=== PATIENT | male | born 1945 | race Caucasian/White ===

== ENCOUNTER → 2016-04-01 | Outpatient (REF) | payer MEDICARE ==
[~2016-04-01] MED LIST: CEFT500T3 PO; MIRT30TA3 PO; MUCI600T34 PO; TYLE325T5 PO; ZITH500T PO; ZOCO20TA PO
[2016-04-01 18:19] LABS: ALBUMIN 4.2 GM/DL (3.2-5.2); ALKALINE PHOSPHATASE 132 U/L (45-117); ALT/SGPT 31 U/L (12-78); ANION GAP 9 MEQ/L (8-16); AST/SGOT 26 U/L (15-37); BLOOD UREA NITROGEN 28 MG/DL (7-18); CALCIUM LEVEL 9.3 MG/DL (8.8-10.2); CARBON DIOXIDE LEVEL 28 MEQ/L (21-32); CHLORIDE LEVEL 108 MEQ/L (98-107); CREATININE FOR GFR 1.13 MG/DL (0.70-1.30); GLOMERULAR FILTRATION RATE > 60.0 (>42); GLUCOSE, FASTING 102 MG/DL (83-110); POTASSIUM SERUM 4.1 MEQ/L (3.5-5.1); SODIUM LEVEL 145 MEQ/L (136-145); TOTAL PROTEIN 7.7 GM/DL (6.4-8.2)
== END ==
LOC: M SFHCCAPE 07:21
PROVIDERS: ATTEND Internal Medicine
DX: Z51.81 Encounter for therapeutic drug level monitoring (principal); Z79.899 Other long term (current) drug therapy

== ENCOUNTER → 2016-10-09 | Outpatient (REF) | payer MEDICARE ==
[~2016-10-09] MED LIST changes: -MUCI600T34 PO; +MUCI600T37 PO
[2016-10-09 16:59] LABS: ALKALINE PHOSPHATASE 123 U/L (45-117); ALT/SGPT 36 U/L (12-78); ANION GAP 11 MEQ/L (8-16); AST/SGOT 26 U/L (15-37); BILIRUBIN,TOTAL 0.9 MG/DL (0.2-1.0); BLOOD UREA NITROGEN 23 MG/DL (7-18); CALCIUM LEVEL 8.7 MG/DL (8.8-10.2); CARBON DIOXIDE LEVEL 26 MEQ/L (21-32); CHLORIDE LEVEL 109 MEQ/L (98-107); CHOLESTEROL LEVEL 147 MG/DL (<200); CREATININE FOR GFR 1.06 MG/DL (0.70-1.30); GLOMERULAR FILTRATION RATE > 60.0 (>42); GLUCOSE, FASTING 87 MG/DL (83-110); POTASSIUM SERUM 4.6 MEQ/L (3.5-5.1); SODIUM LEVEL 146 MEQ/L (136-145); TRIGLYCERIDES LEVEL 102 MG/DL (<150)
[2016-10-09 17:01] LABS: FOLATE 15.4 NG/ML; VITAMIN B12 LEVEL > 2000 PG/ML
[2016-10-09 17:03] LABS: MEAN CORPUSCULAR HEMOGLOBIN 29.2 pg (27.0-33.0); MEAN CORPUSCULAR HGB CONC 33.7 g/dl (32.0-36.5); MEAN CORPUSCULAR VOLUME 86.8 fl (80.0-96.0); RED CELL DISTRIBUTION WIDTH 13.1 % (11.5-14.5); WHITE BLOOD COUNT 7.5 K/mm3 (4.0-10.0)
== END ==
LOC: M SFHCCAPE 07:08
PROVIDERS: ATTEND Internal Medicine
DX: Z51.81 Encounter for therapeutic drug level monitoring (principal); Z79.899 Other long term (current) drug therapy; E78.00 Pure hypercholesterolemia, unspecified; R41.3 Other amnesia; R97.20 Elevated prostate specific antigen [PSA]

== ENCOUNTER → 2017-01-22 | Outpatient (REF) | payer OTHER | LOC: M LABDRAW1 10:44 | PROVIDERS: ATTEND Physical Medicine & Rehabilitation | DX: M51.37 Other intervertebral disc degeneration, lumbosacral region (principal) ==

== ENCOUNTER → 2017-04-29 | Outpatient (REF) | payer MEDICARE ==
[2017-04-29 16:42] LABS: ALBUMIN 4.3 GM/DL (3.2-5.2); ALBUMIN/GLOBULIN RATIO 1.16 (1.00-1.93); ALKALINE PHOSPHATASE 137 U/L (45-117); ALT/SGPT 29 U/L (12-78); ANION GAP 8 MEQ/L (8-16); AST/SGOT 24 U/L (7-37); BLOOD UREA NITROGEN 31 MG/DL (7-18); CALCIUM LEVEL 9.2 MG/DL (8.8-10.2); CARBON DIOXIDE LEVEL 27 MEQ/L (21-32); CHLORIDE LEVEL 108 MEQ/L (98-107); CREATININE FOR GFR 1.11 MG/DL (0.70-1.30); GLOMERULAR FILTRATION RATE > 60.0 (>42); GLUCOSE, FASTING 80 MG/DL (70-100); SODIUM LEVEL 143 MEQ/L (136-145)
== END ==
LOC: M SFHCCAPE 07:28
DX: E78.00 Pure hypercholesterolemia, unspecified (principal)
CPT/HCPCS: 80053

== ENCOUNTER 2017-07-30 09:09 | Emergency (ER) | payer MEDICARE ==
[2017-07-30] MEDS: ACETAMINOPHEN TAB 650MG DOSE (2X325MG) PO (09:49)
[2017-07-30 10:11] LABS: BASO # 0.1 10^3/uL (0.0-0.2); BASO % 0.5 % (0.0-1.0); EOS # 0.1 10^3/uL (0.0-0.50); EOS % 0.5 % (0.0-3.0); HEMOGLOBIN 14.4 g/dl (13.5-17.5); IMMATURE GRANULOCYTE % 0.5 % (0-3.0); LYMPH % 6.6 % (24.0-44.0); MEAN CORPUSCULAR HEMOGLOBIN 28.8 pg (27.0-33.0); MEAN CORPUSCULAR HGB CONC 34.3 g/dl (32.0-36.5); MONO # 1.4 10^3/uL (0.0-0.8); MONO % 8.8 % (0.0-5.0); NEUTROPHILS # 12.8 10^3/uL (1.8-7.7); NEUTROPHILS % 83.1 % (36.0-66.0); PLATELET COUNT, AUTOMATED 252 10^3/uL (150-450); RED CELL DISTRIBUTION WIDTH 12.9 % (11.5-14.5); WHITE BLOOD COUNT 15.4 10^3/uL (4.0-10.0)
[2017-07-30 10:32] LABS: INFLUENZA A AMPLIFICATION NEGATIVE (NEGATIVE); INFLUENZA B AMPLIFICATION NEGATIVE (NEGATIVE)
[2017-07-30 10:33] LABS: ANION GAP 9 MEQ/L (8-16); BLOOD UREA NITROGEN 27 MG/DL (7-18); CALCIUM LEVEL 9.1 MG/DL (8.8-10.2); CARBON DIOXIDE LEVEL 28 MEQ/L (21-32); CHLORIDE LEVEL 107 MEQ/L (98-107); CREATININE FOR GFR 1.16 MG/DL (0.70-1.30); GLOMERULAR FILTRATION RATE > 60.0 (>42); GLUCOSE, FASTING 125 MG/DL (70-100); SODIUM LEVEL 144 MEQ/L (136-145)
[2017-07-30] MEDS: cefTRIAXone SOD 1 GM in D5W MINI-BAG PLUS 50 ML IV (10:40)
[2017-07-30] MEDS: AZITHROMYCIN 250 MG TAB PO (10:40)
== END 2017-07-30 11:27 | disposition home or self-care (01) ==
LOC: M ED 09:09
DX: J18.1 Lobar pneumonia, unspecified organism (principal); R13.14 Dysphagia, pharyngoesophageal phase; K21.9 Gastro-esophageal reflux disease without esophagitis; K44.9 Diaphragmatic hernia without obstruction or gangrene; Z87.891 Personal history of nicotine dependence; Z79.899 Other long term (current) drug therapy
CPT/HCPCS: J0696

== ENCOUNTER → 2017-07-30 | Outpatient (CLI) | payer MEDICARE ==
[~2017-07-30] MED LIST changes: -CEFT500T3 PO; +E-Z-GAS II EFFERVESCENT PACKET (SODIUM BICARB./CITRIC ACID/SIMETHICONE) As Ordered; +E-Z-HD 98% w/w 340GM SUSP BTL As Ordered; +E-Z-PAQUE 96% w/w SUSP 176GM BTL As Ordered; -MIRT30TA3 PO; -MUCI600T37 PO; -TYLE325T5 PO; -ZITH500T PO; -ZOCO20TA PO
== END ==
LOC: M RAD 08:25
DX: R13.14 Dysphagia, pharyngoesophageal phase (principal); R91.8 Other nonspecific abnormal finding of lung field; K44.9 Diaphragmatic hernia without obstruction or gangrene; K21.9 Gastro-esophageal reflux disease without esophagitis
CPT/HCPCS: 74220

== ENCOUNTER → 2017-08-25 | Outpatient (CLI) | payer MEDICARE | LOC: M LAB 08:13 | DX: R91.8 Other nonspecific abnormal finding of lung field (principal) | CPT/HCPCS: 71046 ==

== ENCOUNTER 2017-11-21 10:11 | Emergency (ER) | payer MEDICARE | END 2017-11-21 11:16 | disposition home or self-care (01) | LOC: M ED 10:11 | DX: R05 Cough (principal); R09.82 Postnasal drip; E78.5 Hyperlipidemia, unspecified; Z87.891 Personal history of nicotine dependence; Z79.899 Other long term (current) drug therapy | CPT/HCPCS: 71046 ==

== ENCOUNTER → 2018-02-08 | Outpatient (CLI) | payer MEDICARE ==
[~2018-02-08] MED LIST changes: +ALLE60TA69 PO; +B121000T PO; +CEFT500T3 PO; +CEFU50TA PO; -E-Z-GAS II EFFERVESCENT PACKET (SODIUM BICARB./CITRIC ACID/SIMETHICONE) As Ordered; -E-Z-HD 98% w/w 340GM SUSP BTL As Ordered; -E-Z-PAQUE 96% w/w SUSP 176GM BTL As Ordered; +FLON1SPR NARES; +MIRT30TA3 PO; +MUCI600T37 PO; +OMEP20CA3 PO; +RANI300T PO; +TYLE325T5 PO; +ZITH500T PO; +ZITHTAB PO; +ZOCO20TA PO
[2018-02-08 10:29] LABS: HEMATOCRIT 41.7 % (42.0-52.0); HEMOGLOBIN 14.1 g/dl (13.5-17.5); MEAN CORPUSCULAR HEMOGLOBIN 29.1 pg (27.0-33.0); MEAN CORPUSCULAR HGB CONC 33.8 g/dl (32.0-36.5); PLATELET COUNT, AUTOMATED 277 10^3/uL (150-450); RED BLOOD COUNT 4.85 10^6/uL (4.30-6.10); WHITE BLOOD COUNT 8.3 10^3/uL (4.0-10.0)
[2018-02-08 11:04] LABS: ALBUMIN 3.8 GM/DL (3.2-5.2); ALT/SGPT 28 U/L (12-78); BILIRUBIN,TOTAL 0.6 MG/DL (0.2-1.0); BLOOD UREA NITROGEN 28 MG/DL (7-18); CALCIUM LEVEL 8.8 MG/DL (8.8-10.2); CARBON DIOXIDE LEVEL 26 MEQ/L (21-32); CHLORIDE LEVEL 109 MEQ/L (98-107); CHOLESTEROL LEVEL 137 MG/DL (<200); CREATININE FOR GFR 1.11 MG/DL (0.70-1.30); GLOMERULAR FILTRATION RATE > 60.0 (>42); GLUCOSE, FASTING 90 MG/DL (70-100); HDL CHOLESTEROL 50 MG/DL (>40); LDL CHOLESTEROL 75 MG/DL (<100); MAGNESIUM LEVEL 2.4 MG/DL (1.8-2.4); NON-HDL-C 87 MG/DL; POTASSIUM SERUM 4.1 MEQ/L (3.5-5.1); PROSTATIC SPECIFIC AG MONITOR 6.13 NG/ML (< 4.00); SODIUM LEVEL 142 MEQ/L (136-145); TOTAL PROTEIN 7.5 GM/DL (6.4-8.2); TRIGLYCERIDES LEVEL 61 MG/DL (<150)
== END ==
LOC: M LAB 10:01
PROVIDERS: ATTEND Internal Medicine
DX: E78.00 Pure hypercholesterolemia, unspecified (principal); R97.20 Elevated prostate specific antigen [PSA]; Z79.899 Other long term (current) drug therapy

== ENCOUNTER → 2018-04-09 | Outpatient (REF) | payer MEDICARE | LOC: M SFHCCAPE 08:39 | PROVIDERS: ATTEND Internal Medicine | DX: R97.20 Elevated prostate specific antigen [PSA] (principal) ==

== ENCOUNTER → 2018-08-17 | Outpatient (CLI) | payer MEDICARE ==
[~2018-08-17] MED LIST changes: -OMEP20CA3 PO; +OMEP20CA4 PO
[2018-08-17 09:02] LABS: ALBUMIN 3.9 GM/DL (3.2-5.2); ALT/SGPT 26 U/L (12-78); BILIRUBIN,TOTAL 1.1 MG/DL (0.2-1.0); BLOOD UREA NITROGEN 31 MG/DL (7-18); CALCIUM LEVEL 9.1 MG/DL (8.8-10.2); CARBON DIOXIDE LEVEL 26 MEQ/L (21-32); CHLORIDE LEVEL 112 MEQ/L (98-107); CREATININE FOR GFR 1.08 MG/DL (0.70-1.30); GLOMERULAR FILTRATION RATE > 60.0 (>42); GLUCOSE, FASTING 87 MG/DL (70-100); POTASSIUM SERUM 3.9 MEQ/L (3.5-5.1); PROSTATIC SPECIFIC AG MONITOR 1.63 NG/ML (< 4.00); SODIUM LEVEL 143 MEQ/L (136-145); THYROID STIMULATING HORMONE 0.784 uIU/ML (0.358-3.740); TOTAL PROTEIN 7.4 GM/DL (6.4-8.2)
== END ==
LOC: M LAB 07:47
PROVIDERS: ATTEND Internal Medicine
DX: E78.00 Pure hypercholesterolemia, unspecified (principal); I48.0 Paroxysmal atrial fibrillation; G56.03 Carpal tunnel syndrome, bilateral upper limbs

== ENCOUNTER → 2018-11-04 | Outpatient (REF) | payer MEDICARE ==
[2018-11-04 18:29] LABS: BLOOD UREA NITROGEN 34 MG/DL (7-18); CREATININE FOR GFR 1.07 MG/DL (0.70-1.30); GLOMERULAR FILTRATION RATE > 60.0 (>42)
== END ==
LOC: M LABDRAW1 18:04
PROVIDERS: ATTEND Physician Assistant
DX: M48.07 Spinal stenosis, lumbosacral region (principal)

== ENCOUNTER → 2019-02-17 | Outpatient (CLI) | payer MEDICARE ==
[~2019-02-17] MED LIST changes: +ASPI81TA85 PO; +MELO15TA28 PO; +OMEP-172 PO; -OMEP20CA4 PO; +RA M10TA PO
[2019-02-17 14:01] LABS: HEMATOCRIT 43.6 % (42.0-52.0); MEAN CORPUSCULAR HEMOGLOBIN 28.2 pg (27.0-33.0); MEAN CORPUSCULAR HGB CONC 32.1 g/dl (32.0-36.5); MEAN CORPUSCULAR VOLUME 87.9 fl (80.0-96.0); PLATELET COUNT, AUTOMATED 251 10^3/uL (150-450); RED BLOOD COUNT 4.96 10^6/uL (4.30-6.10); WHITE BLOOD COUNT 8.8 10^3/uL (4.0-10.0)
[2019-02-17 14:05] LABS: ALBUMIN 4.1 GM/DL (3.2-5.2); ALT/SGPT 28 U/L (12-78); BILIRUBIN,TOTAL 1.2 MG/DL (0.2-1.0); BLOOD UREA NITROGEN 30 MG/DL (7-18); CALCIUM LEVEL 9.3 MG/DL (8.8-10.2); CARBON DIOXIDE LEVEL 26 MEQ/L (21-32); CHLORIDE LEVEL 108 MEQ/L (98-107); CHOLESTEROL LEVEL 142 MG/DL (<200); CHOLESTEROL RISK RATIO 3.021 (<5); CREATININE FOR GFR 1.07 MG/DL (0.70-1.30); GLOMERULAR FILTRATION RATE > 60.0 (>42); GLUCOSE, FASTING 94 MG/DL (70-100); HDL CHOLESTEROL 47 MG/DL (>40); LDL CHOLESTEROL 70 MG/DL (<100); NON-HDL-C 95 MG/DL; POTASSIUM SERUM 4.4 MEQ/L (3.5-5.1); SODIUM LEVEL 141 MEQ/L (136-145); TOTAL PROTEIN 7.7 GM/DL (6.4-8.2); TRIGLYCERIDES LEVEL 126 MG/DL (<150)
== END ==
LOC: M PLALAB 08:50
PROVIDERS: ATTEND Internal Medicine
DX: Z00.00 Encounter for general adult medical examination without abnormal findings (principal); E78.00 Pure hypercholesterolemia, unspecified

== ENCOUNTER 2019-02-22 12:03 | Day surgery (SDC) | payer MEDICARE ==
[~2019-02-22] VITALS: Ht 172.7 cm; Wt 63.0 kg
[~2019-02-22 12:03] MED LIST changes: +NS 1,000 ML IV SCH; -OMEP-172 PO; +OMEP1CAP73 PO
[2019-02-22] MEDS ORDERED: LIDOCAINE 2% INJ 100 MG/5 ML SDV (FOR ANES.) As Ordered ONE (12:05)
[2019-02-22] MEDS ORDERED: propofoL 200 MG/20 ML VIAL As Ordered ONE (12:05)
--- NOTE | 2019-02-22 13:36 | ROOR ---
Patient Name: Spencer Malin Procedure Date: 02/22/2019 1:15 PM Date of : 1945 Age: 74 Room: [facility] Gender: Male Note Status: Finalized Procedure: Colonoscopy Indications: Screening for colorectal malignant neoplasm Providers: Jeovany PAIGE MD Referring MD: Adolfo Silveira MD Requesting Provider: Medicines: Monitored Anesthesia Care Complications: No immediate complications. Procedure: Pre-Anesthesia Assessment: - The heart rate, respiratory rate, oxygen saturations, blood pressure, adequacy of pulmonary ventilation, and response to care were monitored throughout the procedure. The Colonoscope was introduced through the anus and advanced to the terminal ileum, with identification of the appendiceal orifice and IC valve. The colonoscopy was performed without difficulty. The patient tolerated the procedure well. The quality of the bowel preparation was good. Findings: The perianal and digital rectal examinations were normal. Retroflexion in the right colon was performed. Mild sigmoid diverticulosis and small internal hemorrhoids. The entire examined colon appeared normal on direct and retroflexion views. Impression: - Mild sigmoid diverticulosis and small internal hemorrhoids. - The entire examined colon is normal on direct and retroflexion views. - No specimens collected. Recommendation: - Repeat colonoscopy in 10 years for screening purposes. Jeovany Paige MD Jeovany PAIGE MD 02/22/2019 1:35:49 PM Electronically signed by Jeovany PAIGE MD Number of Addenda: 0 Note Initiated On: 02/22/2019 1:15 PM Estimated Blood Loss: Estimated blood loss: none.
[2019-02-22 14:00] VITALS: BP 117/75
== END 2019-02-22 14:05 | disposition home or self-care (01) ==
LOC: M OPP 12:03
PROVIDERS: ATTEND Internal Medicine Gastroenterology
DX: Z12.11 Encounter for screening for malignant neoplasm of colon (principal); K57.30 Diverticulosis of large intestine without perforation or abscess without bleeding; K64.8 Other hemorrhoids; E78.00 Pure hypercholesterolemia, unspecified; M19.90 Unspecified osteoarthritis, unspecified site; Z79.899 Other long term (current) drug therapy; Z87.891 Personal history of nicotine dependence; Z87.19 Personal history of other diseases of the digestive system

== ENCOUNTER → 2019-03-04 | Outpatient (REF) | payer MEDICARE ==
[~2019-03-04] MED LIST changes: -NS 1,000 ML IV SCH
[2019-03-04 18:05] LABS: BLOOD UREA NITROGEN 36 MG/DL (7-18); CREATININE FOR GFR 1.14 MG/DL (0.70-1.30); GLOMERULAR FILTRATION RATE > 60.0 (>42)
== END ==
LOC: M LABDRAW1 16:47
PROVIDERS: ATTEND Physician Assistant
DX: M48.07 Spinal stenosis, lumbosacral region (principal)

== ENCOUNTER → 2019-08-04 | Outpatient (CLI) | payer OTHER ==
[2019-08-04 11:57] LABS: PLATELET COUNT, AUTOMATED 244 10^3/uL (150-450)
[2019-08-04 12:10] LABS: INR 1.18; PROTHROMBIN TIME 14.7 SECONDS (11.8-14.0)
[2019-08-04 12:11] LABS: PARTIAL THROMBOPLASTIN TIME 35.8 SECONDS (25.0-38.4)
== END ==
LOC: M LAB 10:58
PROVIDERS: ATTEND Physician Assistant
DX: Z01.812 Encounter for preprocedural laboratory examination (principal); M47.817 Spondylosis without myelopathy or radiculopathy, lumbosacral region

== ENCOUNTER → 2019-08-06 | Outpatient (REF) | payer MEDICARE ==
[2019-08-06 12:11] LABS: ALBUMIN 3.9 GM/DL (3.2-5.2); ALT/SGPT 26 U/L (12-78); BLOOD UREA NITROGEN 20 MG/DL (7-18); CALCIUM LEVEL 9.2 MG/DL (8.8-10.2); CARBON DIOXIDE LEVEL 27 MEQ/L (21-32); CHLORIDE LEVEL 109 MEQ/L (98-107); CREATININE FOR GFR 0.96 MG/DL (0.70-1.30); GLOMERULAR FILTRATION RATE > 60.0 (>42); GLUCOSE, FASTING 105 MG/DL (70-100); POTASSIUM SERUM 4.4 MEQ/L (3.5-5.1); SODIUM LEVEL 141 MEQ/L (136-145); TOTAL PROTEIN 7.6 GM/DL (6.4-8.2)
== END ==
LOC: M PLALAB 08:44
PROVIDERS: ATTEND Internal Medicine
DX: E78.00 Pure hypercholesterolemia, unspecified (principal)

== ENCOUNTER → 2019-08-31 | Outpatient (CLI) | payer MEDICARE ==
[~2019-08-31] MED LIST changes: -ASPI81TA85 PO; +ASPI81TA86 PO; +AUGM500T34 PO; +QC A650T3 PO
== END ==
LOC: M EKG 07:48
PROVIDERS: ATTEND Internal Medicine Cardiovascular Disease
DX: I48.0 Paroxysmal atrial fibrillation (principal)

== ENCOUNTER 2019-09-06 13:20 | Emergency (ER) | payer MEDICARE ==
[~2019-09-06 13:20] MED LIST changes: -AUGM500T34 PO; +ISOVUE-370 76% 100ML VIAL ONE; -QC A650T3 PO
[2019-09-06] MEDS ORDERED: GI COCKTAIL 50ML BTL(HYOSCYAMINE/MAALOX/LIDOCAINE VISCOUS)(1:3:1) ONE (14:13)
[2019-09-06] MEDS ORDERED: MORPHINE 2 MG/ML 1ML VIAL (J2270) ONE (14:13)
[2019-09-06] MEDS ORDERED: ONDANSETRON 4MG/2ML VIAL ONE (14:13)
[2019-09-06] MEDS ORDERED: ASPIRIN 81 MG CHEW TABLET ONE (14:13)
[2019-10-10 10:07] LABS: BASO # 0.1 10^3/uL (0.0-0.2); BASO % 0.4 % (0.0-1.0); EOS % 0.3 % (0.0-3.0); HEMOGLOBIN 13.9 g/dl (13.5-17.5); LYMPH # 1.2 10^3/uL (1.5-5.0); LYMPH % 9.9 % (24.0-44.0); MEAN CORPUSCULAR HEMOGLOBIN 28.2 pg (27.0-33.0); MEAN CORPUSCULAR HGB CONC 33.1 g/dl (32.0-36.5); MEAN CORPUSCULAR VOLUME 85.2 fl (80.0-96.0); MONO # 1.2 10^3/uL (0.0-0.8); MONO % 9.9 % (0.0-5.0); NEUTROPHILS # 9.6 10^3/uL (1.5-8.5); PLATELET COUNT, AUTOMATED 255 10^3/uL (150-450); RED BLOOD COUNT 4.93 10^6/uL (4.30-6.10); WHITE BLOOD COUNT 12.1 10^3/uL (4.0-10.0)
--- NOTE | 2019-10-29 15:10 | ECGEPIP ---
SINUS RHYTHM EARLY REPOLARIZATION VS PERICARDITIS - CLINICAL CORRELATION BORDERLINE ECG CONCERN WITH DATE - PLEASE RECTIFY NO PRIOR DUE TO DOWNTIME MTDD
[2019-11-20 14:01] LABS: ALT/SGPT 28 U/L (12-78); BILIRUBIN,DIRECT 0.4 MG/DL (0.0-0.2); BILIRUBIN,TOTAL 1.6 MG/DL (0.2-1.0); BLOOD UREA NITROGEN 23 MG/DL (7-18); CALCIUM LEVEL 9.3 MG/DL (8.8-10.2); CARBON DIOXIDE LEVEL 25 MEQ/L (21-32); CHLORIDE LEVEL 105 MEQ/L (98-107); CK-MB VALUE MASS < 1.0 NG/ML (<3.6); CPK CREATINE PHOSPHOKINASE 105 U/L (39-308); CREATININE FOR GFR 1.13 MG/DL (0.70-1.30); FREE T4 1.31 NG/DL (0.76-1.46); GLOMERULAR FILTRATION RATE > 60.0 (>42); GLUCOSE, FASTING 99 MG/DL (70-100); MB/CK RELATIVE INDEX 0.95 (< OR =4); SODIUM LEVEL 141 MEQ/L (136-145); THYROID STIMULATING HORMONE 0.354 uIU/ML (0.358-3.740); TOTAL PROTEIN 7.9 GM/DL (6.4-8.2); TROPONIN I < 0.02 NG/ML (< 0.10)
== END 2019-09-06 19:35 | disposition home or self-care (01) ==
LOC: M ED 13:20
DX: R91.8 Other nonspecific abnormal finding of lung field (principal); R07.9 Chest pain, unspecified; R42 Dizziness and giddiness; Z87.891 Personal history of nicotine dependence; Z79.899 Other long term (current) drug therapy; Z79.84 Long term (current) use of oral hypoglycemic drugs
CPT/HCPCS: 71045; 71046; 71275; 80048; 80076; 82550; 82553; 84439; 84443; 84484; 85025; 87040; 93005; 96374; 96375; 99285; J2270; J2405; Q9967; U0002

== ENCOUNTER → 2019-09-13 | Outpatient (CLI) | payer MEDICARE ==
[~2019-09-13] MED LIST changes: +AUGM500T34 PO; -ISOVUE-370 76% 100ML VIAL ONE; +QC A650T3 PO
== END ==
LOC: M CARPUL 08:30
PROVIDERS: ATTEND Internal Medicine Cardiovascular Disease
DX: I48.0 Paroxysmal atrial fibrillation (principal)

== ENCOUNTER 2019-10-04 06:28 | Day surgery (SDC) | payer MEDICARE ==
[~2019-10-04] VITALS: Ht 172.7 cm; Wt 60.3 kg
[~2019-10-04 06:28] MED LIST changes: -AUGM500T34 PO; +LIDOCAINE 4% INJ 5ML AMP As Ordered ONE; -QC A650T3 PO
[2019-10-04] MEDS ORDERED: THROMBIN SOLN 5,000 UNITS VIAL As Ordered ONE (07:19)
[2019-10-04] MEDS ORDERED: LIDOCAINE 4% TOPICAL SOLN 50 ML BTL As Ordered ONE (07:20)
[2019-10-04] MEDS ORDERED: LIDOCAINE 1% SDV 30ML VIAL As Ordered ONE (07:20)
[2019-10-04] MEDS ORDERED: LIDOCAINE VISCOUS 2% SOLN 15ML UDC As Ordered ONE (07:20)
[2019-10-04] MEDS ORDERED: CETACAINE SPRAY 5GM As Ordered ONE (07:20)
[2019-10-04] MEDS ORDERED: EPINEPHrine 1MG/10ML SYRINGE 1.5IN As Ordered ONE (07:20)
[2019-10-04] MEDS ORDERED: AUGM500T34 PO (07:21)
[2019-10-04] MEDS ORDERED: QC A650T3 PO (07:21)
[2019-10-04] MEDS ORDERED: ALBUTEROL SULFATE 2.5 MG/0.5 ML INH NEB SOLN As Ordered ONE (07:24)
[2019-10-04] MEDS ORDERED: LIDOCAINE 4% INJ 5ML AMP NEB ONE (07:45)
[2019-10-04] MEDS ORDERED: ALBUTEROL SULFATE 2.5 MG/0.5 ML INH NEB SOLN INH ONE (07:45)
[2019-10-04] MEDS ORDERED: ONDANSETRON 4MG/2ML VIAL As Ordered ONE (08:24)
[2019-10-04] MEDS ORDERED: dexameTHASONE 4 MG/ML 1ML VIAL (J1100 PER 1MG) As Ordered ONE (08:24)
[2019-10-04] MEDS ORDERED: fentaNYL 100 MCG/2 ML INJECTION (J3010) As Ordered ONE (08:24)
[2019-10-04] MEDS ORDERED: LIDOCAINE 2% 100MG/5ML SDV (FOR ANES.) As Ordered ONE (08:24)
[2019-10-04] MEDS ORDERED: MIDAZOLAM INJ 2MG/2ML VIAL (J2250 PER 1MG) As Ordered ONE (08:24)
[2019-10-04] MEDS ORDERED: propofoL 200 MG/20 ML VIAL As Ordered ONE (08:24)
[2019-10-04] MEDS ORDERED: ROCURONIUM BROMIDE 50 MG/5 ML VIAL As Ordered ONE (08:24)
[2019-10-04] MEDS ORDERED: PHENYLephrine HCL 500 MCG/5 ML (100MCG/ML) SYRINGE (J2370) As Ordered ONE (08:45)
[2019-10-04] MEDS ORDERED: SUGAMMADEX SODIUM 500 MG/5 ML VIAL (BRIDION) As Ordered ONE (08:54)
[2019-10-04 11:23] VITALS: BP 155/74
[2019-10-07] MEDS ORDERED: METHACHOLINE KIT (J7674) INH ONE (15:00)
--- NOTE | 2019-10-25 11:46 | RO ---
DATE OF OPERATION: 10/04/2019 PREOPERATIVE DIAGNOSIS: Abnormal chest CT, right lower lobe mass. POSTPROCEDURE DIAGNOSIS: Abnormal chest CT, right lower lobe mass. FINDINGS: Smoker airways and with robotic vision only, endobronchial lesion in the superior basal segment most medial and posterior branch of the superior basal segment. PROCEDURE: Bronchoscopy with [place] navigation, endobronchial ultrasound, linear and radial probes used. SURGEON: Ronen Contreras DO ASSISTANTS: Jeovany Witt DO and Gracia Mora MD. ANESTHESIA: General. SPECIMENS OBTAINED: Microbrush, right lower lobe. Endobronchial biopsies, right lower lobe. BAL, right lower lobe sent to cytology. FNA, subcarinal node. COMPLICATIONS: No observed complications. Postprocedure chest x-ray is pending. ESTIMATED BLOOD LOSS: Less than 10 mL DRAINS: None. DESCRIPTION OF PROCEDURE: After informed consent was reviewed with the patient in the preoperative area, he was brought back to OR #6 which is a premapped room. Anesthesia was initiated with an 8.5 endotracheal tube. Case was then handed over to me. A second timeout was performed with two patient identifiers, identifying correct site, correct procedure, and correlating that with name and date of on the imaging from the [place]. Cetacaine spray was used to anesthetize the airway and the 1T190 bronchoscope was introduced. The trachea was midline. Jennifer was sharp. Right and left mainstem bronchus were normal. Minimal mucus in the right main stem which was easily cleared. RB1 through 3 was inspected without endobronchial abnormalities. The spur between the right upper lobe and the right middle lobe was slightly splayed. Right middle lobe RB4 and 5 were without endobronchial lesions. RB6 through 10 on this bronchoscope was without endobronchial lesions. The bronchoscope was retracted and inserted into the left mainstem, minimal pitting without banding. LB1 through 10 was normal without endobronchial lesions. After inspection and appropriate endotracheal tube placement to perform [place], the robotic bronchoscope was inserted after the 1T190 bronchoscope was removed. Registration was performed. The lesion was easily navigated to in the distal airway. There was actually obstruction of the most posterior medial segment of the superior basal segment of the right lower lobe. The initial part had mucus below, looked like tumor. Biopsies were taken. Touch prep of a forceps biopsy was performed in the OR. On-site cytology suggested abnormal cells, possibly squamous cell cancer. Microbrush was performed. After endobronchial biopsies were taken, BAL was performed. Due to the size of the lesion, I felt that this would likely be resectable. Therefore, fiducial markers were not placed. The bronchoscope was then removed. A linear ultrasound was then inserted. The right hilum did not show any obtainable lymph nodes. However, there was an enlarged subcarinal lymph node. I performed biopsies of this lesion. FNAs appeared to be adequate for cell block. After adequate sampling, the endobronchial ultrasound was removed. The 1T190 bronchoscope was inserted to ensure hemostasis. After hemostasis was ensured, the 1T190 bronchoscope was removed. DOMINGOD
--- NOTE | 2019-11-03 09:46 | REP ---
PORTABLE CHEST COMPARISON: Multiple, the latest 09/06/2019 at 2:19 pm. The technique utilized in obtaining the radiograph has magnified the cardiac silhouette and accentuated the interstitial markings. FINDINGS: There is cardiomegaly accentuated by technique. There is evidence of mild basilar fibrotic change status quo. No acute patchy parenchymal opacities or pleural effusions have developed. There is no change in the osseous structures. IMPRESSION: No significant change from the prior exam. Mild cardiomegaly without evidence of acute cardiopulmonary disease. MTDD
== END 2019-10-04 11:37 | disposition home or self-care (01) ==
LOC: M SDC 06:28
PROVIDERS: ATTEND Internal Medicine Pulmonary Disease
DX: C34.31 Malignant neoplasm of lower lobe, right bronchus or lung (principal); I10 Essential (primary) hypertension; K21.9 Gastro-esophageal reflux disease without esophagitis; E78.00 Pure hypercholesterolemia, unspecified; Z79.82 Long term (current) use of aspirin; Z79.899 Other long term (current) drug therapy
CPT/HCPCS: 31623; 31624; 31625; 31627; 31652; 71045; 87071; 88108; 88173; 88305; 88313; J1100; J2250; J2370; J2405; J3010; S2900

== ENCOUNTER → 2019-10-12 | Outpatient (CLI) | payer MEDICARE ==
[~2019-10-12] MED LIST changes: +AUGM500T34 PO; -LIDOCAINE 4% INJ 5ML AMP As Ordered ONE; +QC A650T3 PO
--- NOTE | 2019-11-10 07:45 | REP ---
CT PET REASON FOR EXAM: Right lung mass. COMPARISON: CT of the chest 09/22/2019 reviewed. FINDINGS: After the intravenous administration of 8.75 millicuries of FDG-18, triplane whole body PET CT was performed from the skull base to the mid thigh. There is a focus of abnormal hypermetabolic activity seen in the right hilum and having a maximal SUV value of 6.0. There was a focus of abnormal hypermetabolic activity seen in the aortic pulmonary window having a maximal SUV value of 6.7. There is a possible additional focus of hypermetabolic activity seen in the right hilum having an SUV value of 3.0. Seen in the right lung lower lobe in a posterior infrahilar location and in a paraspinal location there is a large area of abnormal hypermetabolic activity having an SUV value of 10.3. This was seen on the prior CT scan as a 3.9 x 3.1 x 3.3 cm sized mass. No additional abnormal hypermetabolic foci were seen in the neck, chest, abdomen, or pelvis. No abnormal activity is seen in the axial skeleton, however, there is left shoulder hypermetabolic activity with SUV value of 7.0 but likely secondary to degenerative change. IMPRESSION: Abnormal hypermetabolic activity seen in the chest with an additional extrathoracic site as described above. MTDD
== END ==
LOC: M PLARAD 08:00
PROVIDERS: ATTEND Internal Medicine Pulmonary Disease
DX: C34.31 Malignant neoplasm of lower lobe, right bronchus or lung (principal); Z79.891 Long term (current) use of opiate analgesic
CPT/HCPCS: 78815; A9552

== ENCOUNTER → 2020-06-05 | Outpatient (CLI) | payer MEDICARE ==
[2020-06-05 11:52] LABS: HEMATOCRIT 35.3 % (42.0-52.0); HEMOGLOBIN 11.2 g/dl (13.5-17.5); MEAN CORPUSCULAR HEMOGLOBIN 29.6 pg (27.0-33.0); MEAN CORPUSCULAR HGB CONC 31.7 g/dl (32.0-36.5); MEAN CORPUSCULAR VOLUME 93.4 fl (80.0-96.0); PLATELET COUNT, AUTOMATED 235 10^3/uL (150-450); RED BLOOD COUNT 3.78 10^6/uL (4.30-6.10); WHITE BLOOD COUNT 7.7 10^3/uL (4.0-10.0)
[2020-06-05 12:42] LABS: ALBUMIN 3.8 GM/DL (3.2-5.2); ALT/SGPT 22 U/L (12-78); BILIRUBIN,TOTAL 0.7 MG/DL (0.2-1.0); BLOOD UREA NITROGEN 23 MG/DL (7-18); CALCIUM LEVEL 9.8 MG/DL (8.8-10.2); CARBON DIOXIDE LEVEL 27 MEQ/L (21-32); CHLORIDE LEVEL 108 MEQ/L (98-107); CHOLESTEROL LEVEL 144 MG/DL (<200); CHOLESTEROL RISK RATIO 2.215 (<5); CREATININE FOR GFR 0.97 MG/DL (0.70-1.30); GLOMERULAR FILTRATION RATE > 60.0 (>42); GLUCOSE, FASTING 97 MG/DL (70-100); HDL CHOLESTEROL 65 MG/DL (>40); LDL CHOLESTEROL 65 MG/DL (<100); NON-HDL-C 79 MG/DL; POTASSIUM SERUM 4.3 MEQ/L (3.5-5.1); PROSTATIC SPECIFIC AG MONITOR 5.05 NG/ML (< 4.00); SODIUM LEVEL 142 MEQ/L (136-145); TOTAL PROTEIN 7.8 GM/DL (6.4-8.2); TRIGLYCERIDES LEVEL 70 MG/DL (<150)
== END ==
LOC: M LAB 09:10
PROVIDERS: ATTEND Internal Medicine
DX: E78.00 Pure hypercholesterolemia, unspecified (principal); R97.20 Elevated prostate specific antigen [PSA]

== ENCOUNTER → 2020-06-05 | Outpatient (CLI) | payer MEDICARE ==
[2020-06-05 11:52] LABS: BASO # 0.1 10^3/uL (0.0-0.2); BASO % 0.9 % (0.0-1.0); EOS # 0.1 10^3/uL (0.0-0.5); EOS % 1.4 % (0.0-3.0); HEMATOCRIT 35.5 % (42.0-52.0); HEMOGLOBIN 11.1 g/dl (13.5-17.5); LYMPH # 0.9 10^3/uL (1.5-5.0); LYMPH % 11.1 % (24.0-44.0); MEAN CORPUSCULAR HEMOGLOBIN 29.4 pg (27.0-33.0); MEAN CORPUSCULAR HGB CONC 31.3 g/dl (32.0-36.5); MEAN CORPUSCULAR VOLUME 94.2 fl (80.0-96.0); MONO # 0.7 10^3/uL (0.0-0.8); MONO % 9.3 % (2.0-8.0); NEUTROPHILS % 76.8 % (36.0-66.0); PLATELET COUNT, AUTOMATED 234 10^3/uL (150-450); RED BLOOD COUNT 3.77 10^6/uL (4.30-6.10); WHITE BLOOD COUNT 7.8 10^3/uL (4.0-10.0)
[2020-06-05 11:53] LABS: APPEARANCE, URINE CLEAR (CLEAR); BACTERIA, URINE AUTO NEGATIVE (NEGATIVE); BILIRUBIN, URINE AUTO NEGATIVE (NEGATIVE); BLOOD, URINE BLOOD NEGATIVE (NEGATIVE); COLOR, URINE YELLOW (YELLOW); GLUCOSE, URINE (UA) AUTO NEGATIVE (NEGATIVE); KETONE, URINE AUTO NEGATIVE (NEGATIVE); LEUKOCYTE ESTERASE, URINE AUTO NEGATIVE (NEGATIVE); MUCUS, URINE SMALL (NEGATIVE); NITRITE, URINE AUTO NEGATIVE (NEGATIVE); PROTEIN, URINE AUTO NEGATIVE (NEGATIVE); RBC, URINE AUTO 0 /HPF (0-3); SPECIFIC GRAVITY URINE AUTO 1.014 (1.002-1.035); SQUAMOUS EPITHELIAL CELL UR AU 0 /HPF (0-6); UROBILINOGEN, URINE AUTO 0.2 mg/dL (0.0-2.0); WBC, URINE AUTO 0 /HPF (0-3)
[2020-06-05 12:50] LABS: ALBUMIN 3.7 GM/DL (3.2-5.2); ALT/SGPT 23 U/L (12-78); BILIRUBIN,TOTAL 0.7 MG/DL (0.2-1.0); BLOOD UREA NITROGEN 23 MG/DL (7-18); CALCIUM LEVEL 9.7 MG/DL (8.8-10.2); CARBON DIOXIDE LEVEL 26 MEQ/L (21-32); CHLORIDE LEVEL 107 MEQ/L (98-107); CREATININE FOR GFR 0.95 MG/DL (0.70-1.30); FREE T4 1.25 NG/DL (0.76-1.46); GLOMERULAR FILTRATION RATE > 60.0 (>42); GLUCOSE, FASTING 98 MG/DL (70-100); MAGNESIUM LEVEL 2.5 MG/DL (1.8-2.4); POTASSIUM SERUM 4.2 MEQ/L (3.5-5.1); SODIUM LEVEL 141 MEQ/L (136-145); THYROID STIMULATING HORMONE 0.513 uIU/ML (0.358-3.740); TOTAL PROTEIN 7.8 GM/DL (6.4-8.2)
== END ==
LOC: M LAB 09:14
PROVIDERS: ATTEND Internal Medicine Medical Oncology
DX: C34.90 Malignant neoplasm of unspecified part of unspecified bronchus or lung (principal); E78.00 Pure hypercholesterolemia, unspecified; R97.20 Elevated prostate specific antigen [PSA]; Z79.899 Other long term (current) drug therapy

== ENCOUNTER → 2020-07-16 | Outpatient (CLI) | payer OTHER, MEDICARE ==
--- NOTE | 2020-07-16 17:07 | REPVR ---
PROCEDURE INFORMATION: Exam: MR Lumbar Spine Without Contrast Exam date and time: 07/16/2020 3:40 PM Age: 75 years old Clinical indication: Low back pain; Patient HX: Low pain; Additional info: Spinal stenosis TECHNIQUE: Imaging protocol: Multiplanar magnetic resonance images of the lumbar spine without intravenous contrast. COMPARISON: PT PET/CT Skull/mid thigh 10/12/2019 11:01 AM FINDINGS: Vertebrae: Unremarkable. Spinal cord: The conus is normal in size with no evidence of abnormal bright signal intensity and ending at T12-L1. L1-L2: There is mild broad-based disc protrusion greater on the right. L3-L4: There is moderate broad-based disc osteophyte complex and with facet hypertrophy causing moderate central spinal canal stenosis. There is moderate bilateral L3 neural foraminal narrowing. L4-L5: There is mild posterior osteophyte formation and very severe facet and ligamentum flavum hypertrophy all producing moderate central spinal canal stenosis. There is also severe bilateral L4 neural foraminal narrowing secondary to facet hypertrophy. L5-S1: There is mild broad-based disc protrusion and severe facet and ligamentum flavum hypertrophy all producing moderate central spinal canal stenosis. There is severe bilateral L5 neural foraminal narrowing secondary to disc protrusion/osteophyte formation and facet hypertrophy. There is an extruded disc fragment at the right L5 exit zone impressing on the L5 nerve root. Other bones/joints: The marrow space has a normal signal intensity. Soft tissues: Unremarkable. IMPRESSION: 1. The L3-L4, L4-L5, and L5-S1 levels demonstrate moderate central spinal canal stenosis. 2. There is severe bilateral L4, L5 neural foraminal narrowing. Electronically signed by: Zain Cheatham On 07/16/2020 17:07:01 PM
== END ==
LOC: M RAD 15:00
PROVIDERS: ATTEND Internal Medicine
DX: M48.07 Spinal stenosis, lumbosacral region (principal)

== ENCOUNTER → 2020-08-01 | Outpatient (CLI) | payer MEDICARE ==
--- NOTE | 2020-08-01 15:28 | REPPI ---
INDICATION: C34.31 MALIGNANT NEOPLASM OF LOWER LOBE, RT BRONCHUS/LUNG. COMPARISON: Multiple the latest 10/04/2019 FINDINGS: Once again, there is lung field hyperexpansion and chronic right CP angle blunting. The CP angle blunting has increased from the prior exam although they are technically different. The cardiomediastinal silhouette is stable. The heart is not enlarged. There is no significant change in the osseous structures. IMPRESSION: Right CP angle blunting as described above. Since a do not have the prior which was performed last December and and since the patient has a history of some sort of lung procedure having been performed on him I would suggest CT examination of the chest as a baseline at this time. <Electronically signed by Casa Marshall > 08/01/20 [id number]
== END ==
LOC: M PLAIMG 14:07
PROVIDERS: ATTEND Internal Medicine Pulmonary Disease
DX: C34.31 Malignant neoplasm of lower lobe, right bronchus or lung (principal); J43.1 Panlobular emphysema

== ENCOUNTER → 2020-08-10 | Outpatient (CLI) | payer OTHER, MEDICARE ==
[2020-08-10 11:08] LABS: PLATELET COUNT, AUTOMATED 221 10^3/uL (150-450)
[2020-08-10 11:23] LABS: PROTHROMBIN TIME 13.4 SECONDS (12.5-14.3)
[2020-08-10 11:24] LABS: PARTIAL THROMBOPLASTIN TIME 34.5 SECONDS (24.2-38.5)
== END ==
LOC: M LAB 10:13
PROVIDERS: ATTEND Physician Assistant
DX: M48.07 Spinal stenosis, lumbosacral region (principal)

== ENCOUNTER → 2020-09-26 | Outpatient (CLI) | payer MEDICARE ==
[2020-09-26 07:19] LABS: BASO % 0.6 % (0.0-1.0); EOS # 0.1 10^3/uL (0.0-0.5); HEMOGLOBIN 12.4 g/dl (13.5-17.5); LYMPH % 15.4 % (24.0-44.0); MEAN CORPUSCULAR HGB CONC 32.6 g/dl (32.0-36.5); MEAN CORPUSCULAR VOLUME 85.8 fl (80.0-96.0); MONO # 0.9 10^3/uL (0.0-0.8); MONO % 13.2 % (2.0-8.0); NEUTROPHILS # 4.5 10^3/uL (1.5-8.5); NEUTROPHILS % 68.5 % (36.0-66.0); PLATELET COUNT, AUTOMATED 189 10^3/uL (150-450); RED BLOOD COUNT 4.43 10^6/uL (4.30-6.10); WHITE BLOOD COUNT 6.5 10^3/uL (4.0-10.0)
[2020-09-26 08:00] LABS: ALT/SGPT 23 U/L (12-78); BLOOD UREA NITROGEN 30 MG/DL (7-18); CARBON DIOXIDE LEVEL 29 MEQ/L (21-32); CHLORIDE LEVEL 109 MEQ/L (98-107); CREATININE FOR GFR 1.09 MG/DL (0.70-1.30); FREE T4 1.12 NG/DL (0.76-1.46); GLOMERULAR FILTRATION RATE > 60.0 (>42); GLUCOSE, FASTING 101 MG/DL (70-100); POTASSIUM SERUM 4.4 MEQ/L (3.5-5.1); PROSTATIC SPECIFIC AG MONITOR 2.93 NG/ML (< 4.00); SODIUM LEVEL 140 MEQ/L (136-145); THYROID STIMULATING HORMONE 0.906 uIU/ML (0.358-3.740); TOTAL PROTEIN 7.7 GM/DL (6.4-8.2)
== END ==
LOC: M LAB 06:46
PROVIDERS: ATTEND Internal Medicine
DX: Z85.118 Personal history of other malignant neoplasm of bronchus and lung (principal); E07.9 Disorder of thyroid, unspecified; R97.20 Elevated prostate specific antigen [PSA]

== ENCOUNTER → 2020-11-01 | Outpatient (CLI) | payer MEDICARE | LOC: M SLEEP 20:00 | PROVIDERS: ATTEND Internal Medicine Pulmonary Disease | DX: R06.83 Snoring (principal) ==

== ENCOUNTER → 2020-11-02 | Outpatient (CLI) | payer MEDICARE ==
[2020-11-02 06:57] LABS: BASO # 0.1 10^3/uL (0.0-0.2); EOS # 0.3 10^3/uL (0.0-0.5); EOS % 4.9 % (0.0-3.0); HEMATOCRIT 38.9 % (42.0-52.0); HEMOGLOBIN 12.6 g/dl (13.5-17.5); LYMPH # 1.1 10^3/uL (1.5-5.0); MEAN CORPUSCULAR HEMOGLOBIN 28.3 pg (27.0-33.0); MEAN CORPUSCULAR HGB CONC 32.4 g/dl (32.0-36.5); MEAN CORPUSCULAR VOLUME 87.4 fl (80.0-96.0); MONO # 0.7 10^3/uL (0.0-0.8); MONO % 12.4 % (2.0-8.0); NEUTROPHILS # 3.7 10^3/uL (1.5-8.5); NEUTROPHILS % 63.2 % (36.0-66.0); PLATELET COUNT, AUTOMATED 183 10^3/uL (150-450); RED BLOOD COUNT 4.45 10^6/uL (4.30-6.10); WHITE BLOOD COUNT 5.9 10^3/uL (4.0-10.0)
[2020-11-02 07:27] LABS: ALBUMIN 3.8 GM/DL (3.2-5.2); ALT/SGPT 23 U/L (12-78); BILIRUBIN,TOTAL 1.1 MG/DL (0.2-1.0); BLOOD UREA NITROGEN 21 MG/DL (7-18); CALCIUM LEVEL 9.4 MG/DL (8.8-10.2); CARBON DIOXIDE LEVEL 28 MEQ/L (21-32); CHLORIDE LEVEL 108 MEQ/L (98-107); CREATININE FOR GFR 1.02 MG/DL (0.70-1.30); FREE T4 1.17 NG/DL (0.76-1.46); GLOMERULAR FILTRATION RATE > 60.0 (>42); GLUCOSE, FASTING 106 MG/DL (70-100); PROSTATIC SPECIFIC AG MONITOR 2.73 NG/ML (< 4.00); SODIUM LEVEL 143 MEQ/L (136-145); TOTAL PROTEIN 7.5 GM/DL (6.4-8.2)
== END ==
LOC: M LAB 06:25
PROVIDERS: ATTEND Internal Medicine
DX: Z85.118 Personal history of other malignant neoplasm of bronchus and lung (principal); E07.9 Disorder of thyroid, unspecified; R97.20 Elevated prostate specific antigen [PSA]

== ENCOUNTER 2021-10-22 21:10 | Emergency (ER) | payer MEDICARE ==
[~2021-10-22] VITALS: Ht 172.7 cm; Wt 60.4 kg
[~2021-10-22 21:10] MED LIST changes: +SIMV-253 PO; -ZOCO20TA PO
[2021-10-22 21:12] VITALS: BP 129/76
[2021-10-23] MEDS ORDERED: BOOSTRIX/ADACEL VACCINE (DIPHTH/PERTUSS/ACELL/TETANUS) 0.5ML SYR IM ONE (00:45)
[2021-10-23] MEDS ORDERED: LIDOCAINE 1% MDV 20ML VIAL SC ONE (00:45)
[2021-10-23] MEDS ORDERED: AUGMENTIN 875 MG TAB PO ONE (02:10)
[2021-10-23] MEDS ORDERED: BACITRACIN OINTMENT 30GM TUBE TOP ONE (02:10)
[2021-10-23] MEDS ORDERED: ACETAMINOPHEN 325 MG TAB PO ONE (02:30)
[2021-10-23] MEDS ORDERED: AMOX875T2 PO (02:59)
== END 2021-10-23 03:07 | disposition home or self-care (01) ==
LOC: M ED 21:10
DX: S61.012A Laceration without foreign body of left thumb without damage to nail, initial encounter (principal); S61.211A Laceration without foreign body of left index finger without damage to nail, initial encounter; M25.512 Pain in left shoulder; W29.8XXA Contact with other powered hand tools and household machinery, initial encounter; Y92.009 Unspecified place in unspecified non-institutional (private) residence as the place of occurrence of the external cause; F17.200 Nicotine dependence, unspecified, uncomplicated; I10 Essential (primary) hypertension; E78.5 Hyperlipidemia, unspecified; Z23 Encounter for immunization

== ENCOUNTER → 2021-10-30 | Outpatient (CLI) | payer MEDICARE ==
[~2021-10-30] MED LIST changes: +AMOX875T2 PO
== END ==
LOC: M SOG 10:29
PROVIDERS: ATTEND Physician Assistant
DX: M25.512 Pain in left shoulder (principal)

== ENCOUNTER → 2022-05-22 | Outpatient (CLI) | payer MEDICARE ==
[2022-05-22 15:08] LABS: HEMATOCRIT 44.5 % (42.0-52.0); HEMOGLOBIN 14.5 g/dl (13.5-17.5); MEAN CORPUSCULAR HEMOGLOBIN 28.5 pg (27.0-33.0); MEAN CORPUSCULAR HGB CONC 32.6 g/dl (32.0-36.5); MEAN CORPUSCULAR VOLUME 87.4 fl (80.0-96.0); PLATELET COUNT, AUTOMATED 212 10^3/uL (150-450); RED BLOOD COUNT 5.09 10^6/uL (4.30-6.10)
[2022-05-22 15:14] LABS: C REACTIVE PROTEIN QUANTITATIV < 0.40 MG/DL (<1.0)
[2022-05-22 15:16] LABS: ALBUMIN 3.9 G/DL (3.2-5.2); ALKALINE PHOSPHATASE 130 U/L (46-116); ALT/SGPT 25 U/L (7.0-40); AST/SGOT 23 U/L (<34); BILIRUBIN,TOTAL 0.8 MG/DL (0.3-1.2); BLOOD UREA NITROGEN 25 MG/DL (9-23); CALCIUM LEVEL 9.2 MG/DL (8.3-10.6); CARBON DIOXIDE LEVEL 29 MMOL/L (20-31); CHLORIDE LEVEL 106 MMOL/L (98-107); CHOLESTEROL LEVEL 136 MG/DL (<200); CHOLESTEROL RISK RATIO 2.49 (<5); CREATININE FOR GFR 1.12 MG/DL (0.70-1.30); GLOMERULAR FILTRATION RATE > 60.0 (>42); GLUCOSE, FASTING 80 MG/DL (74-106); HDL CHOLESTEROL 54.6 MG/DL (>40); LDL CHOLESTEROL 61.6 MG/DL (<100); NON-HDL-C 81.4 MG/DL; POTASSIUM SERUM 4.3 MMOL/L (3.5-5.1); SODIUM LEVEL 141 MMOL/L (136-145); TOTAL PROTEIN 7.2 G/DL (5.7-8.2); TRIGLYCERIDES LEVEL 99 MG/DL (<150)
[2022-05-22 15:18] LABS: TOTAL 25(OH) VITAMIN D 38.8 NG/ML (20.0-100.0); VITAMIN B12 LEVEL 777 PG/ML (211-911)
[2022-05-22 16:13] LABS: HEMOGLOBIN A1c 5.8 % (4.0-6.0)
== END ==
LOC: M PLALAB 13:22
PROVIDERS: ATTEND Internal Medicine Hematology
DX: E78.00 Pure hypercholesterolemia, unspecified (principal); R41.3 Other amnesia; R97.20 Elevated prostate specific antigen [PSA]; I48.0 Paroxysmal atrial fibrillation; Z85.118 Personal history of other malignant neoplasm of bronchus and lung; Z79.899 Other long term (current) drug therapy

== ENCOUNTER → 2023-05-06 | Outpatient (CLI) | payer OTHER, MEDICARE ==
[2023-05-06 14:26] LABS: BASO # 0.1 10^3/uL (0.0-0.2); BASO % 0.5 % (0.0-1.0); EOS # 0.2 10^3/uL (0.0-0.5); EOS % 1.6 % (0.0-3.0); HEMATOCRIT 43.7 % (42.0-52.0); HEMOGLOBIN 14.3 g/dl (13.5-17.5); LYMPH # 1.3 10^3/uL (1.5-5.0); LYMPH % 14.1 % (24.0-44.0); MEAN CORPUSCULAR HEMOGLOBIN 29.2 pg (27.0-33.0); MEAN CORPUSCULAR HGB CONC 32.7 g/dl (32.0-36.5); MEAN CORPUSCULAR VOLUME 89.2 fl (80.0-96.0); MONO % 10.6 % (2.0-8.0); NEUTROPHILS # 6.7 10^3/uL (1.5-8.5); NEUTROPHILS % 72.8 % (36.0-66.0); PLATELET COUNT, AUTOMATED 200 10^3/uL (150-450); WHITE BLOOD COUNT 9.2 10^3/uL (4.0-10.0)
[2023-05-06 14:38] LABS: ERYTHROCYTE SEDIMENTATION RATE 30 mm/hr (0-20)
[2023-05-06 14:53] LABS: C REACTIVE PROTEIN QUANTITATIV < 0.40 MG/DL (<1.0)
[2023-05-06 14:54] LABS: RHEUMATOID FACTOR QUANT 8.1 IU/ML (<14)
== END ==
LOC: M PLALAB 09:59
PROVIDERS: ATTEND Physical Medicine & Rehabilitation
DX: M47.816 Spondylosis without myelopathy or radiculopathy, lumbar region (principal)

== ENCOUNTER 2024-09-06 11:10 | Emergency (ER) | payer MEDICARE ==
[~2024-09-06] VITALS: Ht 172.7 cm; Wt 56.2 kg
[2024-09-06 12:10] LABS: BASO # 0.1 10^3/uL (0.0-0.2); BASO % 0.6 % (0.0-1.0); EOS # 0.1 10^3/uL (0.0-0.5); EOS % 0.9 % (0.0-3.0); LYMPH # 1.5 10^3/uL (1.5-5.0); LYMPH % 16.9 % (24.0-44.0); MONO # 1.0 10^3/uL (0.0-0.8); MONO % 11.2 % (2.0-8.0); NEUTROPHILS # 6.4 10^3/uL (1.5-8.5); NEUTROPHILS % 70.1 % (36.0-66.0); PLATELET COUNT, AUTOMATED 188 10^3/uL (150-450)
[2024-09-06 12:23] LABS: INR 1.0
[2024-09-06] MEDS ORDERED: ASPI81TA26 PO (12:43)
[2024-09-06 12:44] LABS: ALT/SGPT 25.0 U/L (7.0-40); AST/SGOT 37.0 U/L (<34); CALCIUM LEVEL 9.5 MG/DL (8.3-10.6); CARBON DIOXIDE LEVEL 24.0 MMOL/L (20-31); CHLORIDE LEVEL 103.0 MMOL/L (98-107); CK-MB VALUE MASS 2.5 NG/ML (<3.6); CREATININE FOR GFR 1.1 MG/DL (0.70-1.30); GLOMERULAR FILTRATION RATE 67.4 (>35); POTASSIUM SERUM 4.3 MMOL/L (3.5-5.1); SODIUM LEVEL 141.0 MMOL/L (136-145)
[2024-09-06] MEDS ORDERED: HOME MED LIST COMPLETE! XX SCH (12:45)
[2024-09-06 12:46] LABS: CPK CREATINE PHOSPHOKINASE 124.0 U/L (46-171); FREE T4 1.56 NG/DL (0.89-1.76); MB/CK RELATIVE INDEX 2.01 (< OR =4)
[2024-09-06] MEDS ORDERED: ISOVUE-370 76% 100 ML VIAL As Ordered ONE (12:47)
[2024-09-06] MEDS: KETOROLAC 30 MG/ML 1 ML VIAL IV ONE (13:04)
[2024-09-06 13:46] LABS: CK-MB VALUE MASS 2.3 NG/ML (<3.6)
[2024-09-06 13:47] LABS: CPK CREATINE PHOSPHOKINASE 102.0 U/L (46-171); MB/CK RELATIVE INDEX 2.25 (< OR =4)
[2024-09-06 15:00] VITALS: BP 171/82; TEMP 97; O2SAT 100
== END 2024-09-06 15:07 | disposition home or self-care (01) ==
LOC: M ED 11:10
DX: R07.9 Chest pain, unspecified (principal); R93.89 Abnormal findings on diagnostic imaging of other specified body structures; J91.8 Pleural effusion in other conditions classified elsewhere; I48.91 Unspecified atrial fibrillation; E78.5 Hyperlipidemia, unspecified; Z87.891 Personal history of nicotine dependence; Z88.8 Allergy status to other drugs, medicaments and biological substances; Z79.1 Long term (current) use of non-steroidal anti-inflammatories (NSAID); Z79.899 Other long term (current) drug therapy
CPT/HCPCS: 71045; 71275; 80048; 80076; 82550; 82553; 83690; 83880; 84439; 84443; 84484; 85025; 85610; 85730; 93005; 93041; 94760; 96374; 99285; J1885; Q9967

== ENCOUNTER → 2024-10-07 | Outpatient (REF) | payer MEDICARE ==
[~2024-10-07] MED LIST changes: +ASPI81TA26 PO
[2024-10-07 15:25] LABS: APPEARANCE, URINE CLEAR (CLEAR); BACTERIA, URINE AUTO NEGATIVE (NEGATIVE); BILIRUBIN, URINE AUTO NEGATIVE (NEGATIVE); BLOOD, URINE BLOOD NEGATIVE (NEGATIVE); GLUCOSE, URINE (UA) AUTO NEGATIVE (NEGATIVE); KETONE, URINE AUTO NEGATIVE (NEGATIVE); LEUKOCYTE ESTERASE, URINE AUTO NEGATIVE (NEGATIVE); MUCUS, URINE SMALL (NEGATIVE); NITRITE, URINE AUTO NEGATIVE (NEGATIVE); PROTEIN, URINE AUTO 1+ mg/dL (NEGATIVE); RBC, URINE AUTO 0 /HPF (0-3); SPECIFIC GRAVITY URINE AUTO 1.021 (1.002-1.035); SQUAMOUS EPITHELIAL CELL UR AU 0 /HPF (0-6); UROBILINOGEN, URINE AUTO 0.2 mg/dL (0.0-2.0); WBC, URINE AUTO 0 /HPF (0-3)
== END ==
LOC: M SFHCPLAZ 15:02
DX: R10.9 Unspecified abdominal pain (principal); Z85.118 Personal history of other malignant neoplasm of bronchus and lung; J43.1 Panlobular emphysema

== ENCOUNTER → 2024-10-12 | Outpatient (CLI) | payer MEDICARE ==
[~2024-10-12] MED LIST changes: +ISOVUE-370 76% 100 ML VIAL As Ordered ONE
== END ==
LOC: M RAD 07:15
DX: J43.1 Panlobular emphysema (principal); J47.9 Bronchiectasis, uncomplicated; E04.2 Nontoxic multinodular goiter; I70.0 Atherosclerosis of aorta
CPT/HCPCS: 71260; Q9967

== ENCOUNTER → 2024-10-13 | Outpatient (CLI) | payer MEDICARE ==
[~2024-10-13] MED LIST changes: -ISOVUE-370 76% 100 ML VIAL As Ordered ONE
[2024-10-13 19:14] LABS: CK-MB VALUE MASS 1.9 NG/ML (<3.6)
[2024-10-13 19:16] LABS: CPK CREATINE PHOSPHOKINASE 87.0 U/L (46-171); MB/CK RELATIVE INDEX 2.18 (< OR =4)
[2024-10-13 19:20] LABS: MYOGLOBIN 106.0 NG/ML (<110)
== END ==
LOC: M PLALAB 14:28
DX: R07.82 Intercostal pain (principal)

== ENCOUNTER → 2024-10-27 | Outpatient (CLI) | payer MEDICARE | LOC: M RAD 13:23 | DX: E04.1 Nontoxic single thyroid nodule (principal) ==

== ENCOUNTER → 2024-11-09 | Outpatient (CLI) | payer MEDICARE | LOC: M WHC 13:39 | DX: N28.1 Cyst of kidney, acquired (principal) ==